=== PATIENT | male | born 1945 | race African-American/Black ===

== ENCOUNTER 2019-11-14 09:48 | Outpatient (CLI) | payer MEDICARE, SELFPAY ==
[2019-11-14 10:10] LABS: Hematocrit 41.4 % (42.0-52.0); Hemoglobin 13.7 g/dL (14.0-18.0); Mean Corpuscular HGB Conc 33.1 g/dl (32-36); Mean Corpuscular Volume 87.5 fl (80-100); Mean Platelet Volume 10.4 fl (7.4-10.4); Platelet Count Result 214 k/mm3 (150-375); Red Blood Count 4.73 M/mm3 (4.6-6.20)
[2019-11-14 12:20] LABS: Alanine Aminotransferase 12 U/L (4-50); Albumin Level 3.6 g/dL (3.5-5.1); Alkaline Phosphatase 91 U/L (38-126); Anion Gap 6 mmol/L (8-16); Aspartate Amino Transferase 23 U/L (17-59); Bilirubin,Total 0.4 mg/dL (0.2-1.3); Blood Urea Nitrogen 23 mg/dL (9-20); CRP 0.8 mg/dL (<1.0); Carbon Dioxide 26 mmol/L (22-30); Chloride 105 mmol/L (98-107); Estimated Glomerular Filt Rate > 60; Glucose 83 mg/dL (75-110); Potassium 4.5 mmol/L (3.4-5.0); Sodium 137 mmol/L (137-145)
[2019-11-14 12:26] LABS: Add Urine Microscopic? YES; Appearance Urine Clear (Clear); Bilirubin Urine Negative (Negative); Blood Urine Negative (Negative); Color Urine Yellow (Yellow); Glucose Urine UA Negative (Negative); Ketones Urine Negative (Negative); Leukocyte Esterase Ur Negative LEU/UL (Negative); Mucus Urine Rare /lpf; Nitrate Urine Negative (Negative); Protein Urine Negative (Negative); Specific Grav Ur 1.026 (1.001-1.035); Squamous Epithelial Cell Urine Rare /hpf (Few); WBC Urine 0-3 /hpf
[2019-11-14 12:42] LABS: Erythrocyte Sedimentation Rate 16 mm/hr (0-20)
[2019-11-17 07:00] LABS: NIL 0.02 IU/mL; Quantiferon TB Plus, 1T NEGATIVE (NEGATIVE)
== END 2019-11-14 09:49 | disposition home or self-care (01) ==
PROVIDERS: Visit Provider Internal Medicine
DX: M05.79 Rheumatoid arthritis with rheumatoid factor of multiple sites without organ or systems involvement (principal); M19.90 Unspecified osteoarthritis, unspecified site
CPT/HCPCS: 36415; 80053; 81001; 85027; 85652; 86140; 86480

== ENCOUNTER 2020-01-16 09:23 | Outpatient (CLI) | payer MEDICARE, SELFPAY ==
[2020-01-16 09:38] LABS: Hematocrit 43.6 % (42.0-52.0); Hemoglobin 14.5 g/dL (14.0-18.0); Mean Corpuscular HGB Conc 33.3 g/dl (32-36); Mean Corpuscular Hemoglobin 29.5 pg (26-34); Mean Corpuscular Volume 88.8 fl (80-100); Mean Platelet Volume 9.9 fl (7.4-10.4); Platelet Count Result 230 k/mm3 (150-375); Red Blood Count 4.91 M/mm3 (4.6-6.20); Red Cell Distribution Width 14.6 % (11.5-14.5); White Blood Count 4.9 K/mm3 (4.5-10.0)
[2020-01-16 13:13] LABS: Add Urine Microscopic? NO; Appearance Urine Clear (Clear); Bilirubin Urine Negative (Negative); Blood Urine Negative (Negative); Color Urine Yellow (Yellow); Glucose Urine UA Negative (Negative); Ketones Urine Negative (Negative); Leukocyte Esterase Ur Negative LEU/UL (Negative); Nitrate Urine Negative (Negative); Protein Urine Negative (Negative); Specific Grav Ur 1.026 (1.001-1.035); Urobilinogen Urine Negative mg/dL (<2.0)
[2020-01-16 13:23] LABS: Alanine Aminotransferase 12 U/L (4-50); Albumin Level 3.6 g/dL (3.5-5.1); Alkaline Phosphatase 81 U/L (38-126); Anion Gap 5 mmol/L (8-16); Aspartate Amino Transferase 22 U/L (17-59); Bilirubin,Total 0.7 mg/dL (0.2-1.3); Blood Urea Nitrogen 21 mg/dL (9-20); CRP 0.7 mg/dL (<1.0); Calcium 9.2 mg/dL (8.4-10.2); Carbon Dioxide 31 mmol/L (22-30); Chloride 104 mmol/L (98-107); Estimated Glomerular Filt Rate > 60; Glucose 99 mg/dL (75-110); Sodium 140 mmol/L (137-145)
[2020-01-16 13:35] LABS: Erythrocyte Sedimentation Rate 16 mm/hr (0-20)
== END 2020-01-16 09:24 | disposition home or self-care (01) ==
LOC: ANHLAB 09:25
PROVIDERS: PCP Family Medicine; Visit Provider Internal Medicine
DX: M05.79 Rheumatoid arthritis with rheumatoid factor of multiple sites without organ or systems involvement (principal); M19.90 Unspecified osteoarthritis, unspecified site
CPT/HCPCS: 36415; 80053; 81003; 85027; 85652; 86140

== ENCOUNTER 2020-07-23 09:35 | Outpatient (CLI) | payer MEDICARE, SELFPAY ==
[2020-07-23 09:57] LABS: Hematocrit 45.8 % (42.0-52.0); Hemoglobin 15.2 g/dL (14.0-18.0); Mean Corpuscular HGB Conc 33.2 g/dl (32-36); Mean Corpuscular Hemoglobin 29.6 pg (26-34); Mean Corpuscular Volume 89.3 fl (80-100); Mean Platelet Volume 10.2 fl (7.4-10.4); Platelet Count Result 220 k/mm3 (150-375); Red Blood Count 5.13 M/mm3 (4.6-6.20); Red Cell Distribution Width 14.1 % (11.5-14.5); White Blood Count 5.2 K/mm3 (4.5-10.0)
[2020-07-23 10:01] LABS: Appearance Urine Clear (Clear); Bilirubin Urine Negative (Negative); Glucose Urine UA Negative (Negative)
[2020-07-23 10:02] LABS: Blood Urine Negative (Negative); Ketones Urine Negative (Negative); Protein Urine Negative (Negative)
[2020-07-23 10:03] LABS: Add Urine Microscopic? NO; Leukocyte Esterase Ur Negative LEU/UL (Negative); Nitrate Urine Negative (Negative); Urobilinogen Urine 0.2 mg/dL (<2.0)
[2020-07-23 13:17] LABS: Alanine Aminotransferase 20 U/L (4-50); Albumin Level 3.8 g/dL (3.5-5.1); Alkaline Phosphatase 90 U/L (38-126); Anion Gap 6 mmol/L (8-16); Aspartate Amino Transferase 29 U/L (17-59); Bilirubin,Total 0.4 mg/dL (0.2-1.3); Blood Urea Nitrogen 15 mg/dL (9-20); CRP < 0.5 mg/dL (<1.0); Calcium 9.3 mg/dL (8.4-10.2); Carbon Dioxide 27 mmol/L (22-30); Chloride 107 mmol/L (98-107); Estimated Glomerular Filt Rate > 60; Glucose 105 mg/dL (75-110); Potassium 3.9 mmol/L (3.4-5.0); Sodium 140 mmol/L (137-145)
[2020-07-23 13:27] LABS: Color Urine Yellow (Yellow)
[2020-07-23 13:40] LABS: Erythrocyte Sedimentation Rate 13 mm/hr (0-20)
== END 2020-07-23 09:36 | disposition home or self-care (01) ==
LOC: ANHLAB 09:36
PROVIDERS: PCP Family Medicine; Visit Provider Internal Medicine
DX: M05.79 Rheumatoid arthritis with rheumatoid factor of multiple sites without organ or systems involvement (principal); M19.90 Unspecified osteoarthritis, unspecified site; Z79.899 Other long term (current) drug therapy
CPT/HCPCS: 36415; 80053; 81003; 85027; 85652; 86140

== ENCOUNTER 2021-08-23 15:52 | Outpatient (CLI) | payer MEDICARE, SELFPAY ==
--- NOTE | ~2021-08-23 | XR_ITS ---
XR lumbar spine min 4V 08/23/2021 16:42 Indication: Polyarthritis Procedure: 7 views of the lumbar spine. Comparison: No prior studies for comparison. Findings: There is disc narrowing at all lumbar levels. There is dextroscoliosis of the lumbar spine centered at L3-4. There is vacuum phenomenon at multiple levels. There is advanced multilevel facet h ypertrophy. There is atherosclerosis and ectasia of the abdominal aorta. Partially visualized right h ip arthroplasty. Impression: 1: Severe lumbar spondylosis with dextroscoliosis. Reviewed, dictated and finalized at location A. Impression: 1: Severe lumbar spondylosis with dextroscoliosis.
--- NOTE | ~2021-08-23 | XR_ITS ---
XR hip BI 2V w AP pelvis 08/23/2021 16:42 Indication: Polyarthritis Procedure: 5 views of the hips including AP pelvis Comparison: No prior studies for comparison. Findings: There is a right total hip arthroplasty. There is advanced multilevel lumbar spondylosis. S acral foramen are symmetric. Pelvic rings are intact. No acute fracture or traumatic malalignment. Th ere is mild osteoarthritis of the left hip. Impression: 1: Mild osteoarthritis of the left hip. 2: No acute fracture. Reviewed, dictated and finalized at location A. Impression: 1: Mild osteoarthritis of the left hip. 2: No acute fracture.
== END 2021-08-23 15:53 | disposition home or self-care (01) ==
LOC: ANHIMG 16:09
PROVIDERS: PCP Family Medicine; Visit Provider Internal Medicine
DX: M05.79 Rheumatoid arthritis with rheumatoid factor of multiple sites without organ or systems involvement (principal); M47.816 Spondylosis without myelopathy or radiculopathy, lumbar region; M41.86 Other forms of scoliosis, lumbar region; M16.12 Unilateral primary osteoarthritis, left hip
CPT/HCPCS: 72110; 73521

== ENCOUNTER 2022-02-13 10:18 | Outpatient (CLI) | payer MEDICARE, MEDICAID, SELFPAY ==
[2022-02-13 10:42] LABS: Hematocrit 44.9 % (42.0-52.0); Hemoglobin 14.9 g/dL (14.0-18.0); Mean Corpuscular HGB Conc 33.2 g/dl (32-36); Mean Corpuscular Hemoglobin 28.7 pg (26-34); Mean Corpuscular Volume 86.3 fl (80-100); Mean Platelet Volume 10.7 fl (7.4-10.4); Platelet Count Result 218 k/mm3 (150-375); Red Cell Distribution Width 13.5 % (11.5-14.5); White Blood Count 6.3 K/mm3 (4.5-10.0)
[2022-02-13 13:28] LABS: Appearance Urine Clear (Clear); Bilirubin Urine 1+ (Negative); Blood Urine Negative (Negative); Color Urine Yellow (Yellow); Glucose Urine UA Negative (Negative); Ketones Urine Trace mg/dL (Negative); Leukocyte Esterase Ur Negative LEU/UL (Negative); Nitrate Urine Negative (Negative); Protein Urine Negative (Negative); Specific Grav Ur >= 1.030 (1.001-1.035); Urobilinogen Urine 0.2 mg/dL (<2.0); pH Urine 5.5 (5.0-9.0)
[2022-02-13 13:31] LABS: Alanine Aminotransferase 16 U/L (6-50); Albumin Level 3.7 g/dL (3.5-5.1); Alkaline Phosphatase 112 U/L (38-126); Anion Gap 8 mmol/L (8-16); Aspartate Amino Transferase 23 U/L (17-59); Bilirubin,Total 0.5 mg/dL (0.2-1.3); Blood Urea Nitrogen 23 mg/dL (9-20); CRP 1.5 mg/dL (<1.0); Calcium 9.4 mg/dL (8.4-10.2); Carbon Dioxide 31 mmol/L (22-30); Chloride 100 mmol/L (98-107); Estimated Glomerular Filt Rate > 60; Glucose 101 mg/dL (65-110); Potassium 3.7 mmol/L (3.4-5.0); Sodium 139 mmol/L (137-145)
[2022-02-13 13:36] LABS: Mucus Urine Rare /lpf; RBC Urine 0-2 /hpf (0-2); Squamous Epithelial Cell Urine Occasional /hpf (Few)
[2022-02-13 13:39] LABS: Add Urine Microscopic? YES
[2022-02-13 13:44] LABS: Erythrocyte Sedimentation Rate 17 mm/hr (0-20)
== END 2022-02-13 10:19 | disposition home or self-care (01) ==
PROVIDERS: PCP Family Medicine; Visit Provider Internal Medicine
DX: M79.602 Pain in left arm (principal); M79.601 Pain in right arm; M19.90 Unspecified osteoarthritis, unspecified site; M05.79 Rheumatoid arthritis with rheumatoid factor of multiple sites without organ or systems involvement; R20.2 Paresthesia of skin
CPT/HCPCS: 36415; 80053; 81001; 85027; 85652; 86140

== ENCOUNTER 2022-04-24 08:45 | Outpatient (RCR) | payer MEDICARE, MEDICAID, SELFPAY ==
--- NOTE | 2022-03-20 10:54 | PTOPEVAL1 ---
Assessment and note entered by Janee Sanchez, PT, DPT Evaluation Information Assessment Status Evaluation Diagnosis L hip and lower back pain Onset 1 year Subjective Information Pt states his lower back and L hip have been hurting and getting progressively worse for about a year. He reports no RENETTA. He reports a history of RA. He states sitting, standing, and walking cause his increased pain and laying on his back makes it feel somewhat better. Reported Pain Level Pain Score 8: Self Report Assessment PT Clinical Summary Joan presents to therapy today for his initial evaluation with a diagnosis of L hip pain. Today he demonstrates painful ROM through full range, painful ambulation, decreased gait speed, and the inability to sit or stand for too long d/t pain. He demonstrates painful and limited hip rotation ROM, hip abduction weakness, and limited hip extension. He has tenderness in his L piriformis and his LLE is longer during the supine length testing, this discrepancy was able to be minimized through muscle energy techniques this date. Skilled physical therapy services are indicated to improve ROM and strength, decreased pain, improve body mechanics and body awareness, to return to baseline function. Plan of Care Interventions Electrical Stimulation,Gait Training,Hot Pack/Cold Pack,Manual Therapy,Neuro Re-education,Patient/ Caregiver Educati,Therapeutic Activities, Therapeutic Exercise PT Services Indicated Yes Treatment Frequency and 1x/wk for 4 wks Duration These treatments will address the objective and functional deficits as defined above. The patient will be advanced safely and appropriately in order for the patient to progress towards his/her prior level of function. Additional exercises will be introduced and as well as a comprehensive home exercise program upon discharge, if needed, ?to ensure carryover of functional gains achieved in the clinic. This treatment plan has been reviewed and agreement upon by the patient.
--- NOTE | 2022-04-03 08:00 | PCPTNOTE ---
Patient called to cancel due to illness.
--- NOTE | 2022-04-17 10:47 | PTOPPROG ---
Assessment and note entered by Janee Sanchez, PT, DPT Evaluation Information Assessment Status Progress Diagnosis L hip and lower back pain Onset 1 year Subjective Information Pt states he does not notice any improvements since starting therapy. Pt states currently he can feel it but its not pain, pain . Pt reports no pain after manual therapy today, he report not being able to walk this well in years. Assessment PT Clinical Summary Joan presents to therapy today for his progress report following 3 visits of skilled therapy to treat his L hip pain. After manual therapy today he demonstrates improved strength and active and passive ROM of his L hip. Prior to manual, this was limited by pain. He demonstrates an improve gait speed with less deficits but still demonstrates an antalgic gait pattern. After today he is progressing well towards his therapy goals. Continuation of skilled therapy services are indicated to continue progressing towards goals, to address gait deviations, for pain management, to improve function, and to return to baseline mobility. Plan of Care Interventions Electrical Stimulation,Gait Training,Hot Pack/Cold Pack,Manual Therapy,Neuro Re-education,Patient/ Caregiver Educati,Therapeutic Activities, Therapeutic Exercise PT Services Indicated Yes Treatment Frequency and 1x/wk for 4 wks Duration These treatments will address the objective and functional deficits as defined above. The patient will be advanced safely and appropriately in order for the patient to progress towards his/her prior level of function. Additional exercises will be introduced and as well as a comprehensive home exercise program upon discharge, if needed, ?to ensure carryover of functional gains achieved in the clinic. This treatment plan has been reviewed and agreement upon by the patient.
--- NOTE | 2022-05-01 10:28 | PCPTNOTE ---
Patient called to cancel due to not having a ride and also having pain.
--- NOTE | 2022-05-08 12:25 | PCPTNOTE ---
Patient called to cancel stating he wants to cancel all remaining appointments due to no ride and pain.
--- NOTE | 2022-05-09 09:24 | PTOPDC ---
Assessment and note entered by aJnee Sanchez, PT, DPT Evaluation Information Assessment Status Discharge - Pt Not Present Diagnosis L hip and lower back pain Onset 1 year Subjective Information Pt called and cancelled all of his remaining appointments. He states he is in too much pain to drive to therapy. He states he will bring a new order in when he is ready to continue therapy. Assessment PT Clinical Summary Joan has completed 6 visits of skilled therapy from 03/20/22 to 04/24/22. With each visit he reported high levels of pain, and then drastically decreased pain at the end of his treatment. Per pt request, he will be discharged from skilled therapy services at this time.
== END 2022-05-09 10:26 | disposition home or self-care (01) ==
LOC: ANHGOSHPT 08:45
PROVIDERS: PCP Family Medicine; Visit Provider Internal Medicine
DX: M25.552 Pain in left hip (principal)
CPT/HCPCS: 97110; 97112; 97140; 97161; 97530

== ENCOUNTER 2022-05-26 13:34 | Outpatient (CLI) | payer MEDICARE, MEDICAID, SELFPAY ==
--- NOTE | ~2022-05-26 | MR_ITS ---
EXAMINATION: MR lumbar spine wo/w con DATE: 05/26/2022 14:42 INDICATION: Low back pain. TECHNIQUE: Magnetic resonance imaging (MRI) of the lumbar spine was performed without and with 20 mL MultiHance intravenous contrast. COMPARISON: Lumbar spine radiographs 08/23/2021 FINDINGS: There is 12 degrees dextroscoliosis of lumbar spine. Vertebral body heights are normal. The re is moderately decreased disc height at L2-L3 and severely decreased disc height from L3-L4 through L5-S1 with endplate remodeling. Epidural lipomatosis is noted. The distal spinal cord signal intensi ty is normal. The conus medullaris is at L2. The following disc levels are specifically discussed: L1-L2: There is a right foraminal protrusion. There is severe bilateral facet joint osteoarthritis. T here is mild right neural foraminal stenosis. There is no central canal stenosis. L2-L3: The disc is bulging and has an annular fissure. There is severe bilateral facet joint osteoart hritis. There is moderate bilateral neural foraminal stenosis. There is mild central canal stenosis. L3-L4: The disc is bulging and has an annular fissure. There is severe bilateral facet joint osteoart hritis. There is moderate bilateral neural foraminal stenosis. There is mild central canal stenosis. L4-L5: The disc is bulging and has an annular fissure. There is severe bilateral facet joint osteoart hritis. There is severe bilateral neural foraminal stenosis. There is mild central canal stenosis. L5-S1: The disc is bulging and has an annular fissure. There is severe bilateral facet joint osteoart hritis. There is moderate bilateral neural foraminal stenosis. There is mild central canal stenosis. IMPRESSION: 1. Severe lumbar spondylosis. 2. Lumbar dextroscoliosis. Reviewed, dictated and finalized at location A. D INCOME DIRECTOR
== END 2022-05-26 13:35 | disposition home or self-care (01) ==
PROVIDERS: PCP Family Medicine; Visit Provider Internal Medicine
DX: R20.2 Paresthesia of skin (principal); M79.601 Pain in right arm; M79.602 Pain in left arm; M47.816 Spondylosis without myelopathy or radiculopathy, lumbar region; M41.9 Scoliosis, unspecified
CPT/HCPCS: 72158; A9577

== ENCOUNTER 2023-03-05 10:00 | Outpatient (CLI) | payer MEDICARE, SELFPAY ==
[2023-03-05 10:37] LABS: Hematocrit 39.3 % (42.0-52.0); Hemoglobin 13.2 g/dL (14.0-18.0); Mean Corpuscular HGB Conc 33.6 g/dl (32-36); Mean Corpuscular Hemoglobin 29.6 pg (26-34); Mean Corpuscular Volume 88.1 fl (80-100); Mean Platelet Volume 9.9 fl (7.4-10.4); Platelet Count Result 306 k/mm3 (150-375); Red Blood Count 4.46 M/mm3 (4.6-6.20); Red Cell Distribution Width 13.8 % (11.5-14.5); White Blood Count 4.7 K/mm3 (4.5-10.0)
[2023-03-05 11:34] LABS: Appearance Urine Clear (Clear); Bilirubin Urine Negative (Negative); Blood Urine Negative (Negative); Color Urine Yellow (Yellow); Glucose Urine UA Negative (Negative); Ketones Urine Negative (Negative); Leukocyte Esterase Ur Negative LEU/UL (Negative); Nitrate Urine Negative (Negative); Protein Urine Negative (Negative); Specific Grav Ur 1.017 (1.001-1.035)
[2023-03-05 11:40] LABS: Add Urine Microscopic? NO
[2023-03-05 11:42] LABS: Alanine Aminotransferase 20 U/L (6-50); Albumin Level 3.5 g/dL (3.5-5.1); Alkaline Phosphatase 116 U/L (38-126); Anion Gap 5 mmol/L (8-16); Aspartate Amino Transferase 33 U/L (17-59); Bilirubin,Total 0.5 mg/dL (0.2-1.3); Blood Urea Nitrogen 14 mg/dL (9-20); CRP 0.7 mg/dL (<1.0); Calcium 9.2 mg/dL (8.4-10.2); Carbon Dioxide 31 mmol/L (22-30); Chloride 102 mmol/L (98-107); Creatine Kinase 56 U/L (55-170); Estimated Glomerular Filt Rate > 60; Glucose 100 mg/dL (65-110); Potassium 3.2 mmol/L (3.4-5.0); Sodium 138 mmol/L (137-145)
[2023-03-05 12:00] LABS: Erythrocyte Sedimentation Rate 42 mm/hr (0-20)
[2023-03-10 04:58] LABS: Aldolase 4.4 U/L (<=8.1)
[2023-03-13 18:47] LABS: JO-1 AB <11 SI (<11); MI-2 Alpha Ab <11 SI (<11); MI-2 Beta Ab <11 SI (<11); NXP-2 AB <11 SI (<11); TIF1 Gamma Ab <11 SI (<11)
== END 2023-03-05 10:01 | disposition home or self-care (01) ==
LOC: ANHLAB 10:03
PROVIDERS: Internal Medicine; PCP Family Medicine; Visit Provider Internal Medicine Hematology & Oncology
DX: M05.79 Rheumatoid arthritis with rheumatoid factor of multiple sites without organ or systems involvement (principal)
CPT/HCPCS: 36415; 80053; 81003; 82085; 82550; 84182; 85027; 85652; 86140

== ENCOUNTER 2023-04-17 10:34 | Outpatient (CLI) | payer OTHER, SELFPAY ==
--- NOTE | ~2023-04-17 | XR_ITS ---
XR chest 2V DATE: 04/17/2023 10:58 INDICATION: Rheumatoid arthritis with rheumatoid factor TECHNIQUE: PA and lateral views COMPARISON: 08/09/2018 2 view chest FINDINGS: Normal heart size. No hilar or mediastinal enlargement. There is minimal atelectasis or fibrotic change at the lung bases. There is little interval change co mpared to 08/09/2018. The lungs otherwise appear clear. No pleural effusion or pulmonary vascular roscoe estion or pneumothorax. Dextroscoliosis and degenerative spurring of the thoracic spine. IMPRESSION: Mild bibasilar atelectasis and/or fibrotic change; little interval change since 08/09/2018 Reviewed, dictated and finalized at location B. STAGING SPECIALIST
[2023-04-17 10:58] LABS: Hematocrit 42.5 % (42.0-52.0); Hemoglobin 13.6 g/dL (14.0-18.0); Mean Corpuscular Hemoglobin 29.2 pg (26-34); Mean Corpuscular Volume 91.2 fl (80-100); Mean Platelet Volume 10.3 fl (7.4-10.4); Platelet Count Result 238 k/mm3 (150-375); Red Blood Count 4.66 M/mm3 (4.6-6.20); Red Cell Distribution Width 13.8 % (11.5-14.5); White Blood Count 4.3 K/mm3 (4.5-10.0)
[2023-04-17 10:59] LABS: Appearance Urine Clear (Clear); Bilirubin Urine Negative (Negative); Blood Urine Negative (Negative); Color Urine Yellow (Yellow); Glucose Urine UA Negative (Negative); Ketones Urine Negative (Negative); Leukocyte Esterase Ur Negative LEU/UL (Negative); Nitrate Urine Negative (Negative); Protein Urine Negative (Negative); Specific Grav Ur 1.025 (1.001-1.035); Urobilinogen Urine 0.2 mg/dL (<2.0)
[2023-04-17 11:07] LABS: Add Urine Microscopic? NO
[2023-04-17 11:21] LABS: Alanine Aminotransferase 13 U/L (6-50); Albumin Level 3.9 g/dL (3.5-5.1); Alkaline Phosphatase 94 U/L (38-126); Anion Gap 5 mmol/L (8-16); Aspartate Amino Transferase 30 U/L (17-59); Bilirubin,Total 0.7 mg/dL (0.2-1.3); Blood Urea Nitrogen 22 mg/dL (9-20); Calcium 9.3 mg/dL (8.4-10.2); Carbon Dioxide 32 mmol/L (22-30); Chloride 102 mmol/L (98-107); Estimated Glomerular Filt Rate > 60; Glucose 99 mg/dL (65-110); Potassium 3.7 mmol/L (3.4-5.0); Sodium 139 mmol/L (137-145)
[2023-04-17 11:31] LABS: Erythrocyte Sedimentation Rate 23 mm/hr (0-20)
== END 2023-04-17 10:35 | disposition home or self-care (01) ==
LOC: ANHLAB 10:37
PROVIDERS: PCP Family Medicine; Visit Provider Internal Medicine
DX: M19.90 Unspecified osteoarthritis, unspecified site (principal); M05.79 Rheumatoid arthritis with rheumatoid factor of multiple sites without organ or systems involvement; R91.8 Other nonspecific abnormal finding of lung field
CPT/HCPCS: 36415; 71046; 80053; 81003; 85027; 85652; 86140